=== PATIENT | female | born 1990 | race Caucasian/White ===

== ENCOUNTER 2018-10-10 22:50 | Emergency (ER) | payer OTHER ==
[~2018-10-10] VITALS: Ht 152.4 cm; Wt 62.1 kg
[~2018-10-10 22:50] MED LIST: IBUP-974 PO; PREN-385 PO
[2018-10-10 22:55] VITALS: BP 114/60
--- NOTE | 2018-10-10 22:55 | NUR ---
TO BED # 03 AMBULATORY
--- NOTE | 2018-10-10 23:11 | NUR ---
PT TO ED WITH C/O LOWER BACK PAIN INCREASED WITH MOVEMENT. PT STATES SHE WAS IN HER CAR FOR A LONG PERIOD OF TIME AND THEN THE PAIN STARTED. NO OBVIOUS INJURY OR TRAUMA NOTED. PT PLACED INTO BED, PENDING MD JACOBSON.
[2018-10-10 23:33] LABS: BILIRUBIN,URINE NEGATIVE (NEGATIVE); BLOOD, URINE TRACE-L (NEGATIVE); COLOR,URINE YELLOW (YELLOW); LEUKOCYTE ESTERASE ,URINE NEGATIVE (NEGATIVE); NITRITE, URINE NEGATIVE (NEGATIVE); UGLUCOSE NEGATIVE (NEGATIVE)
[2018-10-10 23:42] LABS: APPEARANCE,URINE SLIGHTLY HAZY (CLEAR)
[2018-10-10 23:44] LABS: WBC,URINE 0-5 /HPF (0-5)
[2018-10-10] MEDS ORDERED: KETOROLAC 15 MG/ML VIAL IM ONE (23:50)
--- NOTE | 2018-10-11 | NUR ---
PT IN BED, NO DISTRESS NOTED. ALL QUESTIONS ANSWERED.
[2018-10-11 00:11] LABS: BASOPHILS # (AUTO) 0.1 K/uL (0.00-0.22); BASOPHILS % (AUTO) 0.6 % (0.0-2.0); EOSINOPHILS # (AUTO) 0.2 K/uL (0-0.4); HEMATOCRIT 39.5 % (36-48); HEMOGLOBIN 13.2 g/dL (12.0-16.0); LYMPHOCYTES # (AUTO) 3.1 K/uL (2.5-16.5); LYMPHOCYTES % (AUTO) 26.4 % (20.5-51.1); MEAN CORPUSCULAR HEMOGLOBIN 29 pg (27-31); MEAN CORPUSCULAR HGB CONC 33 g/dL (33-37); MEAN CORPUSCULAR VOLUME 88.2 fL (80-94); MONOCYTES % (AUTO) 8.7 % (1.7-9.3); NEUTROPHILS # (AUTO) 7.3 K/uL (1.8-7.7); NEUTROPHILS % (AUTO) 62.3 % (42.2-75.2); PLATELET COUNT (AUTO) 273 K/uL (140-450); RED BLOOD CELL COUNT(AUTO) 4.48 MIL/uL (4.20-5.40); RED CELL DISTRIBUTION WIDTH 12.3 % (11.6-13.7); WHITE BLOOD COUNT (AUTO) 11.7 K/uL (4.8-10.8)
[2018-10-11 00:20] LABS: ANION GAP 9.8 (8-16); CARBON DIOXIDE 29.2 mmol/L (21-32); CREATININE 0.7 mg/dL (0.6-1.3)
[2018-10-11 00:26] LABS: ALBUMIN 3.7 g/dL (3.4-5.0); TOTAL BILIRUBIN 0.2 mg/dL (0.0-1.0)
[2018-10-11 02:01] VITALS: BP 110/74
== END 2018-10-11 01:11 | disposition home or self-care (01) ==
LOC: MED 22:50
DX: K59.00 Constipation, unspecified (principal); N39.0 Urinary tract infection, site not specified; Z79.899 Other long term (current) drug therapy
CPT/HCPCS: 36415; 74176; 80053; 81001; 81025; 83690; 85025; 87086; 96372; 99283; J1885

== ENCOUNTER 2019-12-16 14:23 | Emergency (ER) | payer OTHER ==
[~2019-12-16] VITALS: Ht 152.4 cm; Wt 63.5 kg
[2019-12-16 14:37] VITALS: BP 151/119
[2019-12-16] MEDS ORDERED: KETOROLAC 30 MG/ML VIAL IM ONE (14:45)
[2019-12-16 18:18] VITALS: BP 109/66
[2019-12-16 18:30] LABS: APPEARANCE,URINE HAZY (CLEAR)
[2019-12-16 18:31] LABS: BILIRUBIN,URINE NEGATIVE (NEGATIVE); BLOOD, URINE 1+ (NEGATIVE); COLOR,URINE YELLOW (YELLOW); LEUKOCYTE ESTERASE ,URINE NEGATIVE (NEGATIVE); NITRITE, URINE NEGATIVE (NEGATIVE); UGLUCOSE NEGATIVE (NEGATIVE)
[2019-12-16 18:33] LABS: RBC,URINE 0-5 /HPF (0-5)
[2019-12-16 18:34] LABS: WBC,URINE NONE SEEN /HPF (0-5)
[2019-12-16 18:44] LABS: BARBITURATE, URINE NEGATIVE ng/ml (NEG <=200); BENZODIAZEPINE, URINE NEGATIVE ng/mL (NEG <=200); CANNABINOID, URINE POSITIVE ng/mL (NEG <=50); COCAINE, URINE NEGATIVE ng/mL (NEG <=300); PHENCYCLIDINE SCREEN,URINE NEGATIVE ng/mL (NEG <=25)
[2019-12-16 18:45] LABS: OPIATE, URINE NEGATIVE ng/mL (NEG <=2000)
== END 2019-12-16 18:17 | disposition home or self-care (01) ==
LOC: MED 14:23
DX: U07.1 COVID-19 (principal); M54.9 Dorsalgia, unspecified; R53.1 Weakness; Z79.899 Other long term (current) drug therapy
CPT/HCPCS: 71045; 72080; 80305; 81001; 81025; 96372; 99284; J1885; U0003

== ENCOUNTER 2020-12-02 20:25 | Emergency (ER) | payer OTHER ==
[~2020-12-02] VITALS: Ht 152.4 cm; Wt 61.7 kg
[2020-12-02 20:40] VITALS: BP 108/62
--- NOTE | 2020-12-02 21:48 | NUR ---
pt ambulated to bed #8
--- NOTE | 2020-12-02 21:50 | NUR ---
30 Y/O PATIENT PRESENTS TO ED WITH LOWER BACK PAIN . PT STATES " I HAVE BEEN HAVING LOWER BACK PAIN AND TODAY WAS THE WORST, IT DOES RADIATE TO MY LOWER ABDOMEN." DENIES N/V/D; SKIN IS PINK/WARM/DRY; AAOX4 WITH EVEN AND STEADY GAIT; LUNGS CLEAR BL; HR EVEN AND REGULAR; PT DENIES ANY FEVER, CP, SOB, OR COUGH AT THIS TIME; PATIENT STATES PAIN OF 9/10 AT THIS TIME; VSS; PATIENT POSITIONED FOR COMFORT; HOB ELEVATED; BEDRAILS UP X2; BED DOWN. ER MD MADE AWARE OF PT STATUS. NKA PMH: DENIES
[2020-12-02 22:11] LABS: BILIRUBIN,URINE NEGATIVE (NEGATIVE); BLOOD, URINE 3+ (NEGATIVE); COLOR,URINE YELLOW (YELLOW); LEUKOCYTE ESTERASE ,URINE TRACE (NEGATIVE); NITRITE, URINE POSITIVE (NEGATIVE); PH,URINE 5.5 (5.0-9.0); UGLUCOSE NEGATIVE (NEGATIVE)
[2020-12-02 22:12] LABS: APPEARANCE,URINE CLOUDY (CLEAR)
[2020-12-02 22:24] LABS: WBC,URINE 60-80 /HPF (0-5)
[2020-12-02] MEDS ORDERED: LIDOCAINE MPF 1% 5 ML ONE (22:54)
[2020-12-02] MEDS ORDERED: cefTRIAXone 1,000 MG VIAL ONE (22:54)
[2020-12-02] MEDS ORDERED: ACET-8386 PO (23:02)
[2020-12-02] MEDS ORDERED: CIPR500T4 PO (23:02)
[2020-12-02] MEDS: ONDANSETRON 4 MG ODT PO ONE (23:02)
[2020-12-02] MEDS: HYDROcodone/APAP 5/325 MG 1 TAB TAB PO ONE (23:03)
[2020-12-02] MEDS: cefTRIAXone 1,000 MG in LIDOCAINE MPF 1% 2.1 ML IM ONE (23:04)
[2020-12-02 23:09] VITALS: BP 108/62
--- NOTE | 2020-12-02 23:10 | NUR ---
Patient discharged with v/s stable. Written and verbal after care instructions given and explained. Patient alert, oriented and verbalized understanding of instructions. Ambulatory with steady gait. All questions addressed prior to discharge. ID band removed. Patient advised to follow up with PMD. Rx of NORCO, AND CIPRO given. Patient educated on indication of medication including possible reaction and side effects. Opportunity to ask questions provided and answered.
== END 2020-12-02 23:10 | disposition home or self-care (01) ==
LOC: MED 20:25
DX: N12 Tubulo-interstitial nephritis, not specified as acute or chronic (principal); R10.9 Unspecified abdominal pain; M54.5 Low back pain; Z79.899 Other long term (current) drug therapy
CPT/HCPCS: 81001; 81025; 87086; 96372; 99283; J0696; J2001; Q0162

== ENCOUNTER 2021-05-18 10:35 | Emergency (ER) | payer OTHER ==
[~2021-05-18] VITALS: Ht 152.4 cm; Wt 65.3 kg
[~2021-05-18 10:35] MED LIST changes: +ACET-8386 PO; +CIPR500T4 PO
[2021-05-18 10:47] VITALS: BP 127/75
[2021-05-18] MEDS ORDERED: BACITRACIN OINT 500 UNITS/GM PKT TP ONE ×2 (11:18→11:20)
[2021-05-18] MEDS ORDERED: NAPR-54 PO (11:23)
[2021-05-18] MEDS ORDERED: AMOX-1000 PO (11:23)
--- NOTE | 2021-05-18 11:23 | NUR ---
PER [facility]PA PT LEFT WRAIST WAS DRESSED WITH BACITRACIN AND WAS WRAPPED.
[2021-05-18 12:20] VITALS: BP 105/70
== END 2021-05-18 12:22 | disposition home or self-care (01) ==
LOC: MED 10:35
DX: S61.552A Open bite of left wrist, initial encounter (principal); Z79.899 Other long term (current) drug therapy; W54.0XXA Bitten by dog, initial encounter; Y93.89 Activity, other specified; Y92.89 Other specified places as the place of occurrence of the external cause; Y99.8 Other external cause status
CPT/HCPCS: 73110; 90471; 90715; 99283

== ENCOUNTER 2021-05-26 16:27 | Emergency (ER) | payer OTHER ==
[~2021-05-26] VITALS: Ht 152.4 cm; Wt 63.5 kg
[~2021-05-26 16:27] MED LIST changes: +AMOX-1000 PO; +NAPR-54 PO
[2021-05-26 16:42] VITALS: BP 123/71
[2021-05-26] MEDS ORDERED: ACET-10509 PO (17:28)
[2021-05-26] MEDS ORDERED: PROM118S5 PO (17:28)
[2021-05-26 17:51] VITALS: BP 123/71
--- NOTE | 2021-05-26 17:51 | NUR ---
pt assessed and discharged by JULIANNA Gordon
--- NOTE | 2021-05-26 17:52 | NUR ---
Patient discharged with v/s stable. Written and verbal after care instructions given and explained. Patient alert, oriented and verbalized understanding of instructions. Ambulatory with steady gait. All questions addressed prior to discharge. ID band removed. Patient advised to follow up with PMD. Rx of tylenol extra strength and promethazine dm syrup given. Patient educated on indication of medication including possible reaction and side effects. Opportunity to ask questions provided and answered.
== END 2021-05-26 17:51 | disposition home or self-care (01) ==
LOC: MED 16:27
DX: J06.9 Acute upper respiratory infection, unspecified (principal); Z79.899 Other long term (current) drug therapy; Z79.891 Long term (current) use of opiate analgesic; Z79.2 Long term (current) use of antibiotics; Z79.1 Long term (current) use of non-steroidal anti-inflammatories (NSAID)
CPT/HCPCS: 99283

== ENCOUNTER 2023-12-15 08:04 | Emergency (ER) | payer OTHER ==
[~2023-12-15] VITALS: Ht 160 cm; Wt 59.6 kg
[~2023-12-15 08:04] MED LIST changes: +ACET-10509 PO; -ACET-8386 PO; +ACET-8905 PO; +NAPR-337 PO; -NAPR-54 PO; +PROM118S5 PO
[2023-12-15 08:33] VITALS: BP 106/64; PULSE 99; RESP 18; TEMP 98.8; O2SAT 98
[2023-12-15] MEDS ORDERED: ONDA-188 SL (09:37)
[2023-12-15] MEDS ORDERED: BENZ200C4 PO (09:37)
[2023-12-15] MEDS ORDERED: MUC600 PO (09:37)
[2023-12-15 09:46] VITALS: BP 106/64; PULSE 99; RESP 18; TEMP 98.8; O2SAT 98
[2023-12-15 10:13] LABS: FLU A ANTIGEN NEGATIVE (NEGATIVE); FLU B ANTIGEN NEGATIVE (NEGATIVE)
== END 2023-12-15 09:48 | disposition home or self-care (01) ==
LOC: MED 08:04
DX: B34.9 Viral infection, unspecified (principal); Z20.822 Contact with and (suspected) exposure to COVID-19; Z79.1 Long term (current) use of non-steroidal anti-inflammatories (NSAID); Z79.2 Long term (current) use of antibiotics; Z79.899 Other long term (current) drug therapy
CPT/HCPCS: 81025; 99283